=== PATIENT | female | born 1980 | race Caucasian/White ===

== ENCOUNTER → 2018-09-28 10:55 | Outpatient (CLI) | payer OTHER, SELFPAY ==
--- NOTE | 2018-09-28 | DI.MRI.S_ITS ---
PROCEDURE: MR SHOULDER LT WO CON INDICATIONS: LEFT SHOULDER PAIN TECHNIQUE: Noncontrast oblique coronal T2 fast spin echo with fat saturation, oblique sagittal T1 spin echo and T2 fast spin echo with fat saturation, axial T1 spin echo and T2 fast spin echo with fat saturation through the shoulder. COMPARISON: None. FINDINGS: Image quality: Diagnostic. Rotator cuff: No full-thickness or high-grade partial-thickness tear of the rotator cuff is evident. There is mild supraspinatus tendinopathy without significant tearing. The teres minor and infraspinatus, and subscapularis tendons are intact. There is no significant atrophy or edema of the rotator cuff muscles. Bones and bursae: No acute fracture, dislocation, or suspicious osseous lesion is identified involving the osseous structures of the left shoulder. Mild mild degenerative changes of the acromioclavicular joint are present. No glenohumeral joint degenerative changes are appreciated. There is a small glenohumeral joint effusion. No significant fluid is contained within the subacromial subdeltoid bursa. Capsule and soft tissues: Evaluation of the labrum and glenohumeral ligaments is difficult without intra-articular contrast. Blunting along the posterior aspect of the labrum is present with slight increased signal at the posterior labrocartilaginous junction, suspicious for posterior labral tearing. No large paralabral cysts are evident. The long head of the biceps tendon is normally positioned within the bicipital groove. There is increased signal and thickening involving the intra-articular portion of this tendon. No acute injuries are suspected involving the glenohumeral ligaments. IMPRESSION: 1. Mild supraspinatus tendinopathy without significant tearing. The rotator cuff is otherwise unremarkable. 2. Possible posterior labral tearing. The need for better characterization utilizing MR arthrography may be determined clinically. 3. Mild tendinopathy involving a portion of the biceps tendon. 4. Mild degenerative changes of the acromioclavicular joint. Dictated by: Donnie Steen M.D. on 09/28/2018 at 12:16 Approved by: Donnie Steen M.D. on 09/28/2018 at 12:45
--- NOTE | 2018-09-28 | DI.MRI.S_ITS ---
PROCEDURE: MR CERVICAL SPINE WO CON INDICATIONS: NECK PAIN. LEFT SHOULDER PAIN TECHNIQUE: Noncontrast sagittal T1 spin echo and T2 fast spin echo, sagittal STIR, foraminal oblique sagittal T2 fast spin echo, and axial gradient echo or T2 fast spin echo through the cervical spine. COMPARISON: None. FINDINGS: Image quality: Diagnostic. Spinal Cord: Visualized spinal cord has normal size and signal. No cerebellar tonsillar herniation. The imaged midline intracranial structures are grossly unremarkable. Paraspinous Soft Tissues: No paravertebral masses. Prevertebral soft tissues are normal in thickness. No definite lymphadenopathy is identified. There may be mucosal thickening of the maxillary sinuses, not adequately evaluated were completely included. Bones: The vertebral body heights and marrow signal are well-maintained. There is no evidence of an acute fracture or dislocation. No suspicious osseous lesions are identified. There is straightening of the normal cervical lordosis without spondylolisthesis. C2-C3: There is no significant disc bulge or facet arthropathy. No central canal or neural foraminal stenosis is evident. C3-C4: Mild uncovertebral hypertrophic changes are present at this level without significant disc bulge or facet arthrosis. There is no central canal or neural foraminal narrowing. C4-C5: There is no significant disc bulge or facet arthropathy. No central canal or neural foraminal stenosis is evident. C5-C6: There is mild disc height loss and diffuse disc bulge with uncovertebral hypertrophic changes. No significant facet arthropathy is evident. There is no central canal or neural foraminal narrowing. C6-C7: There is a minimal diffuse disc bulge and possible early facet arthrosis. There is no central canal or neural foraminal stenosis, however. C7-T1: There is no significant disc bulge or facet arthropathy. No central canal or neural foraminal stenosis is evident. IMPRESSION: 1. Mild degenerative changes of the the cervical spine without central canal or neural foraminal narrowing. 2. No disc protrusions or extrusions. 3. Mild straightening of the normal cervical lordosis may be positional and/or related to muscle spasm. Dictated by: Donnie Steen M.D. on 09/28/2018 at 12:10 Approved by: Donnie Steen M.D. on 09/28/2018 at 12:16
== END ==
PROVIDERS: Visit Provider Chiropractor
DX: M54.2 Cervicalgia (principal); M25.512 Pain in left shoulder; M47.22 Other spondylosis with radiculopathy, cervical region; M75.92 Shoulder lesion, unspecified, left shoulder; M19.012 Primary osteoarthritis, left shoulder
CPT/HCPCS: 72141; 73221

== ENCOUNTER → 2019-01-01 08:57 | Outpatient (CLI) | payer OTHER, SELFPAY ==
--- NOTE | 2019-01-01 | DI.MRI.S_ITS ---
PROCEDURE: MR SHOULDER LT W CON INDICATIONS: Unspecified rotator cuff tear or rupture - LEFT TECHNIQUE: After the administration of 12 mL of dilute intra-articular Gadolinium contrast, oblique coronal T1 and T2 spin echo with fat saturation, oblique sagittal T1 spin echo with and without fat saturation, oblique sagittal T2 fast spin echo with fat saturation, axial T1 spin echo with fat saturation through the shoulder. COMPARISON: [facility], MR, MR SHOULDER LT WO CON, 09/28/2018, 11:54. FINDINGS: Image quality: Excellent. Rotator cuff: The supraspinatus, infraspinatus, subscapularis, and teres minor appear intact. There is mild tendinopathy in the supraspinatus distally. No rotator cuff muscle atrophy on sagittal images. Bones and bursae: No bone marrow contusions or fractures. There is mild acromioclavicular joint degeneration with mild periventricular edema including within the distal clavicle. No bony erosions. The acromion demonstrates slight lateral downsloping, without an os acromiale. Capsule and soft tissues: There is a small tear in the posterosuperior labrum along the chondrolabral junction extending into the posterior labrum. There is minimal fraying in the inferior labrum. The glenohumeral ligaments appear intact. The long head of the biceps tendon demonstrates normal location and morphology. The biceps sara appears intact within the rotator interval. The coracohumeral ligament is of normal thickness. No intra-articular bodies. IMPRESSION: 1. Mild tearing of the posterosuperior and posterior labrum along chondrolabral junction. 2. Mild acromioclavicular joint degeneration including mild edema in the distal clavicle. 3. Mild tendinopathy in the supraspinatus without a discrete rotator cuff tear. Dictated by: Jitendra Narvaez M.D. on 01/01/2019 at 15:47 Approved by: Jitendra Narvaez M.D. on 01/01/2019 at 15:56
--- NOTE | 2019-01-01 | DI.RAD.S_ITS ---
PROCEDURE: FL SHOULDER INJECTION MR/CT LT INDICATIONS: Unspecified rotator cuff tear or rupture TECHNIQUE: The indications, alternatives, benefits, risks, and complications of the procedure were explained to the patient. Written informed consent was obtained and placed in the chart. The shoulder was examined fluoroscopically and a site for needle placement chosen for entry into the glenohumeral joint from an anterior approach. The skin was prepped and draped in a sterile fashion, and 1% lidocaine infiltrated from skin down to joint capsule. A spinal needle was inserted into the glenohumeral joint, and a small amount of iodinated contrast media injected to confirm intra-articular placement of the needle tip. This was followed by approximately 12 mL dilute solution of a gadolinium containing MR contrast agent. The needle was removed and a dressing was applied. The patient was given postprocedural instructions and sent to the MR suite for MR imaging. FINDINGS: A single fluoroscopic spot image demonstrates intra-articular location of injected iodinated contrast. IMPRESSION: Successful fluoroscopically guided administration of dilute Gadolinium solution into the shoulder joint for MR arthrogram. Dictated by: Giovani Ulloa M.D. on 01/01/2019 at 9:59 Approved by: Giovani Ulloa M.D. on 01/01/2019 at 9:59
== END ==
PROVIDERS: PCP Family Medicine; Visit Provider Chiropractor
DX: S43.492A Other sprain of left shoulder joint, initial encounter (principal); M19.012 Primary osteoarthritis, left shoulder; M67.912 Unspecified disorder of synovium and tendon, left shoulder
CPT/HCPCS: 23350; 73222; 77002

== ENCOUNTER → 2019-01-04 09:02 | Outpatient (CLI) | payer OTHER, SELFPAY ==
--- NOTE | 2019-01-04 | DI.MRI.S_ITS ---
PROCEDURE: MR SHOULDER RT WO CON INDICATIONS: UNSPECIFIED ROTATOR CUFF TEAR OR RUPTURE TECHNIQUE: Noncontrast oblique coronal T2 fast spin echo with fat saturation, oblique sagittal T1 spin echo and T2 fast spin echo with fat saturation, axial T1 spin echo and T2 fast spin echo with fat saturation through the shoulder. COMPARISON: None. FINDINGS: Image quality: Excellent. Rotator cuff: There is partial-thickness tear of the supraspinatus tendon. No supraspinatus tendon retraction or supraspinatus muscle atrophy. The infraspinatus and subscapularis tendons appear intact throughout. Bones and bursae: No bone marrow contusions or fractures. Mild acromioclavicular joint degeneration. The acromion demonstrates conventional anatomy, without an os acromiale. Small amount of subcoracoid bursal fluid is present. Capsule and soft tissues: In the absence of intra-articular contrast, the labrum and glenohumeral ligaments appear intact. The long head of the biceps tendon demonstrates normal location and morphology. The rotator interval appears normal, without fibrosis. The coracohumeral ligament is normal in thickness. IMPRESSION: 1. Partial-thickness tear of the supraspinatus tendon. 2. Small amount of subcoracoid bursal fluid this is with mild bursitis. 3. Mild acromioclavicular joint degeneration. Dictated by: Amy Farrar M.D. on 01/04/2019 at 10:37 Approved by: Amy Farrar M.D. on 01/04/2019 at 11:48
== END ==
PROVIDERS: PCP Family Medicine; Visit Provider Chiropractor
DX: M75.111 Incomplete rotator cuff tear or rupture of right shoulder, not specified as traumatic (principal); M75.51 Bursitis of right shoulder; M19.011 Primary osteoarthritis, right shoulder
CPT/HCPCS: 73221

== ENCOUNTER 2019-05-07 06:00 | Observation (INO) | payer OTHER, SELFPAY ==
[2019-05-03 09:33] VITALS: BMI 25.6
[2019-05-06] VITALS (16 sets, daily range): BP systolic 98–130; BP diastolic 55–78; PULSE 66–116; RESP 9–16; TEMP 36.2–37.2; O2SAT 91–100; BMI 24.5
--- NOTE | 2019-05-06 | PATH_ITS ---
[facility] Accession Number: [id number] . 01 Material submitted: . uterus - UTERUS AND BILATERAL FALLOPIAN TUBES . 02 Diagnosis: Uterus and Bilateral Fallopian Tubes, Hysterectomy and Bilateral Salpingectomy (63 grams after removal of Fallopian tubes): Secretory endometrium; negative for glandular hyperplasia, cytologic atypia, and malignancy. Myometrium with no significant histomorphologic abnormality. Uterine serosa with numerous transmural defects identified at gross examination, non-specific. Fallopian tubes x2 with a focus of paratubal tissue involved by endometriosis and otherwise no significant histomorphologic abnormality. V 05/10/2019 1524 Local . 02 Electronically signed: . Gladys Villagomez MD, Pathologist NPI- [id number] . 01 Gross description: . Received in a formalin-filled container, labeled uterus and bilateral fallopian tubes consists of numerous soft tissue fragments grossly consistent with a previously fragmented uterus, 10.7 x 9.8 x 4.0 cm in aggregate. A cervix is not grossly identified. Further inspection reveals two pink-aguirre smooth fallopian tubes, the larger of which has a fimbriated end, 1.2 x 0.5 cm and 5.4 x 0.6 cm. Orientation of the fallopian tubes is not possible due to fragmentation of uterus. After removal of the bilateral fallopian tubes, the uterine fragments have a combined weight of 63.0 grams. The uterine serosa is pink-aguirre smooth with numerous transmural defects, up to 5.0 cm. The uterine serosa is inked blue. Sectioning of the uterine fragments reveals focal areas of aguirre raised thickened possible endometrium. This raised thickened area of possible endometrium is grossly visible within four of the uterine fragments and ranges from 3.0 cm up to 4.1 cm. Sectioning of this possible thickened endometrium reveals pink-aguirre homogeneous cut surfaces and has a greatest depth of 0.7 cm. The scant uninvolved remaining endometrium is pink-red up to 0.2 cm in thickness. The myometrium is aguirre trabeculated up to 1.5 cm in thickness. A grossly distinct mass or nodule is not grossly identified. Sectioning of the previously attached fallopian tubes reveals focally hemorrhagic otherwise aguirre unremarkable cut surfaces with a pinpoint lumen. Production [employer] Sprayer sections are submitted as follows: A1-A2 -uninvolved uterus, full-thickness sections; A3-A5 - uterus full thickness sections from largest intact uterine fragment including possible thickened endometrium; A6-A7 - additional endomyometrium including possible areas of thickened endometrium from smaller separately received uterine fragments; A8 - shorter segment of fallopian tube, trisected, entirely submitted; A9 - hostess party sales representative sections of opposing fallopian tube, including fimbria. ([id number]) /MRV 05/07/2019 1631 Local . 02 Pathologist provided ICD-10: N84.0, N92.0 . 02 CPT . 802316 Performed at: 01 [facility] [address] [facility], [place], [place] [id number] MD Jitendra Kaur MD Phone: [phone] Performed at: 02 [facility] [place] [address] [place], [place] [id number] MD Barb Ozuna MD Phone: [phone]
--- NOTE | 2019-05-06 09:31 | PM.PREOP ---
Pre-operative Note Interval Note History & Physical reviewed/Exam performed by Physician: Yes Changes to H&P: No
[2019-05-06] MEDS: LACTATED RINGERS 1,000 ML 100 ML IV ×4 (09:39→18:12)
[2019-05-06] MEDS: APREPITANT 40 MG CAPSULE PO (09:54)
[2019-05-06] MEDS: CEFAZOLIN 2 GM/100 ML FROZ.PIGGY IV (10:15)
--- NOTE | 2019-05-06 10:50 | SUR.OPER ---
Lithotomy on padded OR bed. Centennial Pad Positioner under torso. Head on pillow, arms padded and tucked at sides. Legs secured in padded yellow fins stirrups.
[2019-05-06] MEDS: BUPIVACAINE 0.5% W/ EPI (PF) VIAL 30 ML INJ (10:55)
[2019-05-06] MEDS: ROPIVACAINE 0.2% PF 2 MG/ML 10ML AMP 10 ML INJ (11:17)
--- NOTE | 2019-05-06 12:16 | SUR.PHASEI ---
care transferred to Rola TORRES, report given.
--- NOTE | 2019-05-06 12:21 | SUR.PHASEI ---
Report received. VS stable. Abdominal dressings clean, dry, intact x4, mihai-pad clean, dry intact.
[2019-05-06] MEDS: HYDROMORPHONE 2 MG INJ 0.5 MG IV (12:39)
--- NOTE | 2019-05-06 12:48 | SUR.PHASEI ---
Patient reported pain improving. Patient also stated that her heart rate is variable normally.
--- NOTE | 2019-05-06 12:56 | SUR.PHASEI ---
Declined po intake x2
--- NOTE | 2019-05-06 13:02 | SUR.PHASEI ---
Report called to Kaia
--- NOTE | 2019-05-06 13:07 | SUR.PHASEI ---
Dr. Coronado notified heart rate variable form 70s to 110s. No new orders.
--- NOTE | 2019-05-06 13:10 | PC.NURSE ---
Day shift: Pt not on AC unit at this time.
--- NOTE | 2019-05-06 13:20 | PC.NURSE ---
Day shift: Pt on AC unit at this time from PACU. VS WNL. RA 94%. c/o ABD pain 10/07. Medicated w/ [place] per AUG. Oriented to room and call light. Spouse at bedside for support. Pt feeling overwhelmed and tearful at this time.
--- NOTE | 2019-05-06 13:23 | SUR.PHASEI ---
Patient transferred to the floor with belongings bag. Vital signs stable. Abd dressings CDI, mihai-pad CDI. IV saline locked. Report given to Kaia.
[2019-05-06] MEDS: HYDROCODONE/ACET 5/325 TABLET 1 TAB PO ×3 (13:29→22:19)
--- NOTE | 2019-05-06 14:13 | PC.NURSE ---
Prescription for [place] given to pt's Mayank with pt's permission.
[2019-05-06] MEDS: INFLUENZA VACCINE 0.5 ML SYRINGE IM (14:54)
[2019-05-06] MEDS: ONDANSETRON 4 MG/2 ML INJ IV (17:39)
[2019-05-06] MEDS: DOCUSATE 250 MG CAPSULE PO (20:26)
[2019-05-06] MEDS: KETOROLAC 30 MG/ML VIAL IV (20:26)
[2019-05-07] MEDS: HYDROCODONE/ACET 5/325 TABLET 1 TAB PO ×3 (02:29→10:38)
[2019-05-07] MEDS: LACTATED RINGERS 1,000 ML 100 ML IV (02:41)
--- NOTE | 2019-05-07 03:54 | PC.NURSE ---
Addendum entered by Alondra Smith R.N. 05/07/19 06:39: States pain 4.5/10 so medicated with Vicodin. Addendum entered by Alondra Smith R.N. 05/07/19 05:28: States pain meds are only holding the pain for 3 hours. Earlier had stated she set her alarm so she knew when she could have next pain meds but now saying she was having pain earlier but just didn't ask for anything until the 4 hour aaron. Medicated now with IV Toradol. Discussed pain medication options and will discuss further with MD when she rounds. Original Note: Assessed 0245 and patient is alert and oriented. Breath sounds CTA with RA sat of 99%. HRR. Denies nausea. BT present but denies flatus; abdomen is soft but tender. Lap site dressings x 4 are CDI. Indwelling catheter is patent; urine is clear yellow. Able to move self in bed. Wearing bilateral calf SCD's. Reports when she was up on previous shift she felt very weak and dizzy. Gait not assessed at this time as not out of bed. Reports abdominal pain is 5/10 and was medicated with Vicodin per Mona RN at 0229. Fall risk score is moderate; patient calls appropriately for assistance.
[2019-05-07 05:10] VITALS: BP 98/62; PULSE 61; RESP 16; TEMP 37.1; O2SAT 97
[2019-05-07] MEDS: KETOROLAC 30 MG/ML VIAL IV (05:25)
[2019-05-07 07:06] LABS: Add Manual Diff / Slide Review NO; Basophils Absolute Auto 0 /uL (0-100); Basophils Percent Auto 0.3 % (0-2); Eosinophils Absolute Auto 0 /uL (0-450); Eosinophils Percent Auto 0.5 % (2-4); Hematocrit 30.9 % (36-46); Hemoglobin 10.2 g/dL (12.0-16.0); Lymphocytes Absolute Auto 1300 /uL (1100-4500); Lymphocytes Percent Auto 18.1 % (25-40); Mean Corpuscular HGB Conc 33.1 % (30-36); Mean Corpuscular Hemoglobin 25.5 PG (26-34); Mean Corpuscular Volume 76.9 fL (80-100); Monocytes Absolute Auto 600 /uL (0-900); Monocytes Percent Auto 8.2 % (3-14); Neutrophils Absolute Auto 5300 /uL (1500-7000); Neutrophils Percent Auto 72.9 % (50-75); Platelet Count 180 X10^3/uL (150-400); Red Blood Cell Count 4.02 X10^6/uL (4.0-5.2); Red Cell Distribution Width 15.2 % (11.6-14.8); White Blood Cell Count 7.2 X10^3/uL (4.5-11.0)
[2019-05-07 08:00] VITALS: BP 98/58; PULSE 67; RESP 14; TEMP 37.2; O2SAT 100
[2019-05-07] MEDS: DOCUSATE 250 MG CAPSULE PO (08:18)
[2019-05-07] MEDS: ESCITALOPRAM 10 MG TABLET PO (08:18)
[2019-05-07] MEDS: ONDANSETRON 4 MG/2 ML INJ IV (08:23)
--- NOTE | 2019-05-07 10:27 | PM.GYNOP.1 ---
Operative Date/Time/Diagnoses Date of procedure: 05/06/19 Time of procedure: 12:45 Pre-op diagnosis: Menorrhagia Endometrial polyps Post-op diagnosis: same Procedure & Clinicians Procedure: Procedures Operation Date: 05/06/19 09:45 Actual Procedures Side Surgeon p Laparoscopic Supracervical Hysterectomy w/ bilateral salpingectomy Not Applicable Lida Barahona MD Indications: Menorrhagia Endometrial polyps Surgeon: Lida Barahona Full Roll Inspector: Yury Osborne Anesthesia Type: General Operative Notes Findings: Uterine 2 left sidewall adhesions Eight week size uterus Both tubes status post ligation Normal ovaries Normal appendix, and liver Omental to anterior abdominal wall adhesions Closure Type: primary Specimen(s): left tube, right tube and uterus Applied: catheter Estimated blood loss (mL): 75 Blood products transfused: none Procedure in detail: The patient was taken to the operating room where she was placed in the dorsal supine position. After adequate general endotracheal anesthesia was achieved, she was placed in the dorsal lithotomy position, and prepped and draped in the usual sterile fashion. A timeout was performed. A bivalve speculum was placed into the vagina and the anterior lip of the cervix grasped with a single-tooth tenaculum. The cervical os was sequentially dilated until the ZUMI uterine manipulator could pass easily into the endometrial cavity. The single-tooth tenaculum was removed from the anterior lip of the cervix, and the bivalve speculum was removed from the vagina. Attention was then turned to the abdomen where 6 mL of half percent Marcaine with epinephrine were injected in the umbilical fold. A 5 mm incision was made. The Verhees needle was placed into the peritoneal cavity, and its placement confirmed by aspiration and drop test. The Verhees needle was removed. A 5 mm trocar was placed without difficulty. 2 other incisions were made midway between the pubic symphysis and umbilicus after 5 mL of half percent Marcaine with epinephrine were injected. These were 5 mm incisions. Two 5 mm trochars were placed under direct visualization. The right tube was grasped with an atraumatic grasper. Using the plasma kinetic with settings of 40 W the mesosalpinx was cauterized and cut all the way down to the cornua of the uterus. The cornua of the uterus was then grasped with an atraumatic grasper. The utero-ovarian ligaments were cauterized and cut. The round ligament and broad ligament was cauterized and cut with plasma kinetic. Hemostasis was achieved. The bladder flap was created using the plasma kinetic with cautery and cut long term across. The uterine arteries on the right side were extensively cauterized with plasma kinetic. The adhesions between the uterus and left sidewall were taken down with the PlasmaKinetic. All of this was repeated on the left side. The remainder of the bladder flap was created using the plasma kinetic, and the bladder taken down off the lower uterine segment and cervix. Using the Endoloop, the cervix was amputated from the uterus 2 cm above the uterosacral ligaments, after the ZUMI uterine manipulator was removed from the uterus. The endocervical canal was extensively cauterized. There was a small amount of bleeding noted from the posterior edge of the cervix, and this was cauterized for hemostasis. A sponge stick was placed into the vagina. 6 mL of half percent Marcaine with epinephrine were injected above the pubic symphysis. A 12 mm trocar was placed. An Endobag was placed through the suprapubic trocar and the uterus placed into the Endobag. The trocar was removed. The Robson placed into the endobag. The uterus was hand morcellated in approximately 5 pieces. The Endobag was removed from the peritoneal cavity. The pelvis was copiously irrigated with warm normal saline. No bleeding was noted. 20 cc of 0.2% ropivacaine were placed over the pedicles. The instruments were removed from the abdomen. The CO2 was allowed to escape. The suprapubic incision was closed on the fascia with 0 Vicryl. All of the incisions were closed with 4-0 Biosyn in a subcuticular fashion. Steri-Strips, 2 x 2, and op site were placed. The moistened sponge stick was removed from the vagina. Sponge, lap, and instrument counts were correct x-2. The patient tolerated the procedure well, was taken to PACU in stable condition. Complications: none Post-operative Condition: stable Disposition: PACU Plan for aftercare: Home after recovery
--- NOTE | 2019-05-07 10:39 | P.DS_ITS ---
History of Present Illness History of Present Illness Date Patient Seen: 05/07/19 Time Patient Seen: 09:20 Chief complaint: OPB [id number] Narrative: Patient is a 39-year-old postop day # 1 from a laparoscopic supracervical hysterectomy with bilateral salpingectomy and lysis of adhesions. Patient was supposed to go home after surgery yesterday but had nausea and v omiting. She was also not able to empty her bladder. A catheter was placed overnight. She was placed on antiemetics. She is feeling much better this morning. Discharge Providers Provider Date of admission: 05/06/19 Discharge Date: 05/07/19 Primary care physician: Dee Murillo DO Discharge provider: Lida Balderas MD Summary Hospital Course Discharge Diagnosis: Menorrhagia Endometrial polyps Laparoscopic supracervical hysterectomy with bilateral salpingectomy and lysis of adhesions Hospital Course: Patient presented on May 06, 2019 for a scheduled laparoscopic supracervical hysterectomy with bilateral salpingectomy. She underwent this procedure as well as lysis of adhesions without complication. Postoperatively she had nausea requiring IV medications and was unable to empty her bladder. A catheter was placed overnight and she was given antiemetics. Her nausea has subsided. Status at Discharge Cognitive/behavioral status at discharge: oriented Functional status at discharge: independent ambulation Overall status at discharge: patient is progressing back to baseline Time Spent with Patient Time spent: Less than 30 minutes Exam Vital Signs (past 8 hours): - 05/07/19 05:10 05/07/19 08:00 Temperature 98.8 F 99.0 F Pulse Rate 61 67 Respiratory Rate 16 14 Blood Pressure 98/62 98/58 L Pulse Oximetry 97 100 Oxygen Delivery Method Room Air Oxygen Flow Rate 0 Narrative Exam Narrative: Generally: Patient is sitting up in bed, no acute distress Lungs: Clear to auscultation bilaterally Cardiovascular: Regular rate and rhythm Abdomen: Soft, flat, good bowel sounds Incisions: Clean dry and intact with op site Extremities: Negative Homans, no edema Objective Labs Result Diagrams: 05/07/19 06:40 Labs: Laboratory Results - last 24 hr 05/07/19 06:40 WBC 7.2 RBC 4.02 Hgb 10.2 L Hct 30.9 L MCV 76.9 L MCH 25.5 L MCHC 33.1 RDW 15.2 H Plt Count 180 Neut % (Auto) 72.9 Lymph % (Auto) 18.1 L Davidson % (Auto) 8.2 Eos % (Auto) 0.5 L Baso % (Auto) 0.3 Neut # (Auto) 5300 Lymph # (Auto) 1300 Davidson # (Auto) 600 Eos # (Auto) 0 Baso # (Auto) 0 Discharge Plan Discharge Plan Patient Disposition: Home Discharge comment: Call with fever, chills or redness or drainage around incisions Ibuprofen 600mg every 6 hours Codeine every 2-3 hours Discharge Med Rec/Prescriptions Prescriptions: New hydrocodone-acetaminophen [Pacifica] 5-325 mg tablet 1 tab PO Q4-6H PRN (Reason: pain) Qty: 30 RF: 0 codeine sulfate 15 mg tablet 15 mg PO Q2-3H PRN (Reason: breakthrough pain) Qty: 20 RF: 0 ondansetron HCl [Zofran] 4 mg tablet 4 mg PO Q6H PRN (Reason: nausea and vomiting) Qty: 10 RF: 2 Continued valacyclovir 500 mg tablet 500 mg PO DAILY Qty: 0 RF: 0 escitalopram oxalate 10 mg tablet 10 mg PO DAILY RF: 0 multivitamin Tablet 1 tab PO DAILY RF: 0 Discontinued ferrous sulfate 325 mg PO DAILY RF: 0 Follow up/Referrals: Lida Balderas MD [Physician] - 05/18/19 3:15 pm (appt:05/18 @ 3:[address] balderas please arrive 15 minutes prior to scheduled appointment ) Discharge Orders: Discharge (Order); Ordered 05/07/19 Ordered By: Lida Balderas Provider Discharge Instructions Diet: Regular Skin/Wound/Dressing Care Report to your healthcare provider any signs of infection, such as:: chills, fever, increased pain, unusual drainage and unusual redness Dressing: Remove outer plastic dressings and guaze tomorrow after a shower Leave steri strips in place Visit Report/Discharge Packet Instructions: DI for Hysterectomy, DI for Laparoscopy Stand Alone Forms: Surgery Discharge Discharge Data Primary Care Provider: Dee Murillo Attending Provider: Lida Balderas
--- NOTE | 2019-05-07 11:35 | PC.NURSE ---
Day shift: Pt left unit via WC w/ [employer] to car driven by Pt's spouse. Paperwork is signed and all questions answered. Dressing at lap sites all CDI. No blood from [place] area. Pt has MD scripts. Pt still having nausea. Pt does have 2 of the emesis bags and ice water. Pt will get Zofran script in [place]. Pt has all personal belongings.
== END 2019-05-07 11:40 | disposition home or self-care (01) ==
LOC: OR 11:12
PROVIDERS: Admitting Provider Obstetrics & Gynecology; PCP Family Medicine; Visit Provider Obstetrics & Gynecology
PROC: 0UT94ZL Resection of Uterus, Supracervical, Percutaneous Endoscopic Approach (ICD-10-PCS; CPT 58542; principal; 2019-05-06 09:45)
DX: N92.0 Excessive and frequent menstruation with regular cycle (principal); N84.0 Polyp of corpus uteri; K66.0 Peritoneal adhesions (postprocedural) (postinfection); Z23 Encounter for immunization
CPT/HCPCS: 58542; 36415; 85025; 90471; 90656; 94762; G0378; J0330; J0690; J1100; J1170; J1885; J2250; J2405; J2704; J2710; J2795; J3010; J8501; Q2038

== ENCOUNTER → 2019-05-18 16:12 | Outpatient (CLI) | payer OTHER, SELFPAY ==
[2019-05-06 14:01] VITALS: BMI 24.5
== END ==
PROVIDERS: PCP Family Medicine; Visit Provider Obstetrics & Gynecology
DX: R31.9 Hematuria, unspecified (principal)
CPT/HCPCS: 87086

== ENCOUNTER → 2022-05-12 13:29 | Outpatient (CLI) | payer OTHER, SELFPAY ==
[2019-05-06 14:01] VITALS: BMI 24.5
== END ==
PROVIDERS: PCP Family Medicine; Visit Provider Physician Assistant
DX: R30.0 Dysuria (principal)
CPT/HCPCS: 87077; 87086; 87186